=== PATIENT | male | born 1980 | race Caucasian/White ===

== ENCOUNTER 2019-11-11 10:35 | Emergency (ER) | payer OTHER ==
[2019-11-11 10:43] VITALS: BP 147/92; PULSE 102; TEMP 97; BMI 33.4
--- NOTE | 2019-11-11 12:03 | PDOC ---
History of Present Illness - General Chief Complaint: Injury Stated Complaint: FELL (HEAD LACERATION) Time Seen by Provider: 11/11/19 11:16 History Source: Patient - History of Present Illness Timing/Duration: reports: this morning Location: reports: face Past History - Past Medical History Allergies/Adverse Reactions: Allergies Allergy/AdvReac Type Severity Reaction Status Date / Time Penicillins Allergy UNKNOWN Verified 11/11/19 10:43 Home Medications: Ambulatory Orders Oxycodone HCl/Acetaminophen [Percocet 5-325 mg Tablet] 1 each PO Q6H PRN #7 09/13/11 COPD: No - Immunization History Td Vaccination: Yes Immunization Up to Date: Yes - Psycho Social/Smoking Cessation Hx Smoking Status: Yes Smoking History: Current every day smoker Number of Cigarettes Smoked Daily: 10 Information on smoking cessation initiated: No Review of Systems - Review of Systems ABD/GI: No: Nausea, Vomiting Neurological: No: Headache *Physical Exam - Vital Signs Last Vital Signs Temp Pulse Resp BP Pulse Ox 97 F L 102 H 18 147/92 99 11/11/19 10:41 11/11/19 10:41 11/11/19 10:41 11/11/19 10:41 11/11/19 10:41 - Physical Exam General Appearance: Yes: Appropriately Dressed. No: Apparent Distress HEENT: positive: Normal Voice Neck: positive: Supple Respiratory/Chest: negative: Respiratory Distress Integumentary: positive: Dry, Warm, Other (~2.5 cm linear, superficial lac to R forehead) Neurologic: positive: Fully Oriented, Alert, Normal Mood/Affect Procedures - Laceration/Wound Repair Face Wound Length: to 2.5 cm Wound's Depth, Shape: superficial Irrigated w/ Saline: Yes Betadine Prep: Yes Anesthesia: 1% Lidocaine (7) Wound Repaired With: Sutures Suture Size/Type: 6:0, nylon Number of Sutures: 11 Sterile Dressing Applied: Yes Medical Decision Making - Medical Decision Making 11/11/19 12:03 39-year-old male, no significant history, tetanus up-to-date, here w/ facial laceration. Patient states while putting gas in his car this am, he tripped over a gas hose striking head against car, no LOC, dizziness, nausea or vomiting. see exam Facial lac s/p suture repair Tetanus UTD Dc w/ wound check as needed Discharge - Discharge Information Problems reviewed: Yes Clinical Impression/Diagnosis: Facial laceration Qualifiers: Encounter type: initial encounter Qualified Code(s): S01.81XA - Laceration without foreign body of other part of head, initial encounter Condition: Good Disposition: HOME - Follow up/Referral - Patient Discharge Instructions Patient Printed Discharge Instructions: DI for Laceration Repair Additional Instructions: Keep dressing in place for at least 24 hours after which one can be opened to air. You can gently cleaned wound with mild soap and water after 24 hours to prevent crusting over the suture knots. You can also apply an antibiotic ointment twice a day until sutures are removed. Return for redness, discharge or fever Sutures are removed in 5 days - Post Discharge Activity
== END 2019-11-11 12:01 | disposition home or self-care (01) ==
LOC: JERFT 10:35
DX: S01.81XA Laceration without foreign body of other part of head, initial encounter (principal); W18.39XA Other fall on same level, initial encounter; Y93.89 Activity, other specified; Y92.89 Other specified places as the place of occurrence of the external cause; Z88.0 Allergy status to penicillin; F17.210 Nicotine dependence, cigarettes, uncomplicated
CPT/HCPCS: 99282-25